=== PATIENT | female | born 1970 | race Caucasian/White ===

== ENCOUNTER 2024-05-10 08:21 | Day surgery (SDC) | payer OTHER ==
[2024-04-29 17:19] VITALS: BMI 34.8
[2024-05-10] MEDS ORDERED: ONDANSETRON 4 MG/2 ML VIAL ONE (08:52)
[2024-05-10] MEDS ORDERED: DEXAMETHASONE SOD PHOSPHATE 4 MG/1 ML VIAL ONE (08:52)
[2024-05-10] MEDS ORDERED: LIDOCAINE HCL/PF 2% SDV 5ML VIAL ONE (08:52)
[2024-05-10] MEDS ORDERED: PROPOFOL 40 ML ONE (08:52)
[2024-05-10] MEDS ORDERED: MIDAZOLAM HCL 2 MG/2 ML SINGLE DOSE VIAL ONE (08:53)
[2024-05-10] MEDS ORDERED: SUCCINYLCHOLINE CHLORIDE 200 MG/10 ML SYRINGE ONE (08:53)
[2024-05-10] MEDS ORDERED: ROCURONIUM BROMIDE 50 MG/5 ML SYRINGE ONE ×2 (09:48→13:21)
[2024-05-10] MEDS ORDERED: EPINEPHrine/PF 1 MG/1 ML (1:1,000) AMPULE ONE (10:25)
[2024-05-10] MEDS ORDERED: LIDOCAINE HCL 1%, 10 MG/ML (20ML VIAL) ONE (10:25)
[2024-05-10] MEDS ORDERED: BUPIVACAINE HCL/PF 2.5 MG/ML - 30 ML VIAL IJ ONE (10:25)
[2024-05-10] MEDS: BUPIVACAINE HCL/PF 0.25% (2.5MG/ML) 10 ML VIAL IJ ONE ×2 (12:52→14:14)
[2024-05-10] MEDS ORDERED: PROPOFOL 20 ML ONE ×3 (13:22→14:35)
[2024-05-10] MEDS ORDERED: SUGAMMADEX SODIUM 200 MG/2 ML VIAL ONE (13:53)
[2024-05-10] MEDS ORDERED: oxyCODONE HCL 5 MG TABLET PO PRN ×3 (16:18→16:22)
[2024-05-10] MEDS ORDERED: ONDANSETRON 4 MG/2 ML VIAL IVPUSH PRN (16:18)
[2024-05-10] MEDS ORDERED: PROMETHAZINE HCL 25 MG/1 ML VIAL IVPB PRN (16:18)
[2024-05-10] MEDS ORDERED: ACETAMINOPHEN INJECTION 100 ML ONE (16:20)
[2024-05-10] MEDS ORDERED: ONDANSETRON 4 MG/2 ML VIAL IVPB PRN (16:22)
[2024-05-10] MEDS ORDERED: LACTATED RINGERS SOLUTION 1,000 ML IV SCH ×2 (16:30)
[2024-05-10] MEDS: ACETAMINOPHEN 1000 MG/100 ML BAG IVPB ONE (16:38)
[2024-05-10 18:47] VITALS: RESP 20
[2024-05-10 18:49] VITALS: BP 148/86; PULSE 97; TEMP 97.2
== END 2024-05-10 18:49 | disposition home or self-care (01) ==
LOC: FASU 08:21
PROVIDERS: ATTEND Plastic Surgery
PROC: 0HBV0ZZ Excision of Bilateral Breast, Open Approach (ICD-10-PCS; principal; 2024-05-10 11:36)
PROC: 0JD63ZZ Extraction of Chest Subcutaneous Tissue and Fascia, Percutaneous Approach (ICD-10-PCS; 2024-05-10 11:36)
DX: N62 Hypertrophy of breast (principal)
CPT/HCPCS: 88305-TC; 94760; J0131